=== PATIENT | female | born 1990 | race Caucasian/White ===

== ENCOUNTER 2020-08-13 13:09 | Emergency (ER) | payer BC, OTHER ==
[~2020-08-13] VITALS: Ht 162.6 cm; Wt 68.0 kg
[2020-08-13] MEDS ORDERED: IBUPROFEN 600MG TABLET PO ONE (14:45)
[2020-08-13] MEDS ORDERED: T3 PO (14:48)
[2020-08-13] MEDS ORDERED: IBUP-2029 MT (14:48)
[2020-08-13 15:08] VITALS: BP 150/78
== END 2020-08-13 15:09 | disposition home or self-care (01) ==
LOC: ER 13:09
DX: S62.522A Displaced fracture of distal phalanx of left thumb, initial encounter for closed fracture (principal); W01.0XXA Fall on same level from slipping, tripping and stumbling without subsequent striking against object, initial encounter; Y93.89 Activity, other specified; Y92.89 Other specified places as the place of occurrence of the external cause
CPT/HCPCS: 73130; 99283